=== PATIENT | female | born 1970 | race Caucasian/White ===

== ENCOUNTER 2019-07-06 06:34 | Inpatient (IN) ==
--- NOTE | 2019-07-03 09:24 | EKG Report ---
Test Performed on : 07/03/2019 09:20:37 AM Test Reason : PAT Blood Pressure : / mmHG Vent. Rate : 084 BPM Atrial Rate : 084 BPM P-R Int : 178 ms QRS Dur : 086 ms QT Int : 378 ms P-R-T Axes : 023 028 045 degrees QTc Int : 446 ms Normal sinus rhythm. Nonspecific T wave abnormality Abnormal ECG When compared with ECG of 05-OCT-2018 06:36, No significant change was found Confirmed by Jer Clark MD ([id number]) on 07/08/2019 9:27:59 PM
--- NOTE | 2019-07-03 09:43 | Diag Imaging Result Doc PS360 ---
EXAM: CHEST-2 VIEWS 07/03/2019 HISTORY: PAT TECHNIQUE: PA and lateral chest COMMENT: The inspiration is somewhat suboptimal. There is some questionable bibasilar atelectasis. The appearance the chest has not changed significantly since 09/28/2018. IMPRESSION: Stable chest. Electronically signed by Ezequiel Johnson 07/03/2019 9:40 AM
[2019-07-03 09:45] LABS: HEMATOCRIT 45.7 % (37.0-47.0); HEMOGLOBIN 15.2 g/dL (12.0-16.0); MCH 32.5 PG (27-31); MCHC 33.3 g/dL (33-37); MCV 97.9 FL (81-99); MPV 9.7 FL (7.4-10.4); RBC 4.67 XMIL (4.2-5.4); RDW 14.3 % (11.5-14.5); WBC 12.48 X1000 (4.8-10.8)
[2019-07-03 10:02] LABS: AGAP 11; BUN 8 mg/dL (8-22); CALCIUM 8.3 mg/dL (8.8-10.2); CHLORIDE 105 mmol/L (98-107); COSMO 281; CREATININE 0.9 mg/dL (0.5-0.9); ESTIMATED GFR > 60; GLUCOSE 185 mg/dL (70-104); POTASSIUM 3.8 mmol/L (3.5-5.1); SODIUM 139 mmol/L (136-145); TCO2 23 mmol/L (25-35)
[2019-07-06] MEDS ORDERED: LR 1,000 ML ONE ×2 (08:24→12:58)
[2019-07-06] MEDS ORDERED: KEFZOL 1 GM/D5W 2 GM/100 ML IVPB ONE (08:25)
--- NOTE | 2019-07-06 08:37 | Diag Imaging Result Doc PS360 ---
EXAM: LYMPHOSCINTIGRAPHY W/IMG HISTORY: SIRIA BREAST CA TECHNIQUE: Imaging following lymphoscintigraphy Findings: 455 uCi Tilmanocept administered in the left breast. 508 uCi Tilmanocept administered in the right breast. There is increased activity in the upper outer right breast/axilla. There is no intense focal area and possibly two tiny adjacent less intense areas. There is generalized increased activity above, below, and lateral to the injection site in the left breast, but no distinct focal abnormal area. IMPRESSION: There is definitely one, and possibly three, areas in the upper outer right breast/axilla. Generalized increased activity about the left injection site. Electronically signed by Jeffrey Birmingham 07/06/2019 8:34 AM
[2019-07-06] MEDS ORDERED: VALIUM ONE (09:05)
[2019-07-06] MEDS ORDERED: PEPCID ONE (09:26)
[2019-07-06] MEDS ORDERED: TRANSDERM-SCOP ONE (09:26)
[2019-07-06] MEDS ORDERED: DIPRIVAN 1% ONE (09:31)
[2019-07-06] MEDS ORDERED: QUELICIN (DOSE) ONE (09:32)
[2019-07-06] MEDS ORDERED: ZEMURON ONE (09:32)
[2019-07-06] MEDS ORDERED: VERSED ONE (09:34)
[2019-07-06] MEDS ORDERED: ZOFRAN ONE (09:39)
[2019-07-06] MEDS ORDERED: XYLOCAINE-MPF 2% ONE (09:39)
[2019-07-06] MEDS ORDERED: ROBINUL ONE (09:39)
[2019-07-06] MEDS ORDERED: DECADRON ONE (09:39)
[2019-07-06] MEDS ORDERED: METHYLENE BLUE 0.5% ONE (10:10)
[2019-07-06] MEDS ORDERED: SENSORCAINE 0.25%/EPI 1:200,000 ONE (10:11)
[2019-07-06] MEDS ORDERED: LTA KIT ONE (10:21)
[2019-07-06] MEDS ORDERED: FENTANYL ONE ×2 (10:23→11:34)
[2019-07-06] MEDS ORDERED: PRECEDEX ONE (11:06)
[2019-07-06] MEDS ORDERED: SODIUM CHLORIDE 0.9% 20 ML ONE (11:13)
[2019-07-06] MEDS ORDERED: DILAUDID ONE (12:12)
[2019-07-06] MEDS ORDERED: BUPRENEX IV PRN (13:50)
[2019-07-06] MEDS ORDERED: ZOFRAN IV PRN (13:50)
--- NOTE | 2019-07-06 14:42 | OPERATIVE NOTE ---
PROCEDURE DATE: 07/06/2019 PROCEDURE PERFORMED: 1. Right breast blue dye injection. 2. Right sentinel lymph node biopsy x2. 3. Right total mastectomy. 4. Left modified radical mastectomy. SURGEON: Michael Roberson MD. ROAD CREW MEMBER: Khalif Resendez RN. PREOPERATIVE DIAGNOSIS: Bilateral breast cancer. POSTOP DIAGNOSIS: Bilateral breast cancer. DESCRIPTION OF PROCEDURE: Satisfactory general endotracheal anesthesia was achieved. The right periareolar area was injected 5 mL of methylene blue and the breast was massaged for 5 minutes. Then both breasts and axillae and left arm were prepped and draped in a sterile fashion. We marked the skin in an elliptical fashion on both breasts. We first incised the skin in the right axilla and entered the axillary fat. We interrogated the axilla. We also followed the blue lymphatics toward the apex of the axilla where we identified 2 nodes that had activity and these were sent for frozen section. Some additional tommy tissue was removed but did not have activity so we simply sent additionally as lymph node tissue for permanent section. While we awaited the sentinel node frozen section, we went ahead and incised the skin in an elliptical fashion, placed our skin hooks superiorly, developed a superior skin flap up to the clavicle. We then did it inferiorly down to the serratus muscle and rectus muscles. We then began dissection of the breast off the pectoralis major muscle. We dissected from medial to lateral until we reached the lateral aspect of the pectoralis major. We then found out the 2 sentinel lymph nodes that we had sent were benign so we simply amputated the breast and did not dissect the axilla any further. We placed 1 drain into the axilla, 1 drain under the superior flap and secured these at the skin with 2-0 silk. We then closed the skin with marlon. We then air-planed the patient more to the right and made an elliptical dedra on the left breast. This breast had a larger cancer in it and we decided to dissect the axilla with the mastectomy. We then incised the skin in an elliptical fashion, developed our superior flaps near the clavicle, inferiorly down the serratus and rectus. We then reflected the breast medially, dissected down to the edge of the latissimus, followed the latissimus up to its tendinous portion. We then dissected anteriorly until we identified the axillary vein and dissected from lateral to medial. We dissected the tissue from lateral to medial along the course of the axillary vein. The branches of the vein going inferiorly were clamped and divided and ligated with 3-0 silks. The thoracodorsal nerve was identified and protected. The long thoracic nerve was identified and protected. We clamped the tissue between these and divided it ligating the stump with a 2-0 silk. We then dissected the tissue from between the 2 nerves until the nerves were seen to dive into the respective muscles. The artery to the latissimus was preserved. We then took the breast off the chest wall. We marked the apex of the axilla with the stitch. We achieved satisfactory hemostasis with electrocautery. We placed 2 drains in the left side as well, 1 underneath the skin flap superiorly, 1 in the axilla. We secured the drains at the skin level with 2-0 silks as well. The skin was closed with marlon. Sterile dressings were applied on both sides. She tolerated it well, was sent to the recovery room in satisfactory condition. cc: Michael Roberson MD
[2019-07-06] MEDS: LR 1,000 ML IV SCH ×2 (15:26→23:25)
--- NOTE | 2019-07-06 19:53 | GENERAL SURGERY PROGRESS NOTE ---
DATE: 07/06/2019 Ms. Flannery is doing well after bilateral mastectomy. Her drains are functional. Her hemodynamics are good. She seems comfortable. We will check her labs tomorrow. cc: Michael Roberson MD
[2019-07-06] MEDS: MIRAPEX PO SCH (22:08)
[2019-07-06] MEDS: NORCO-10 PO PRN (22:08)
[2019-07-06] MEDS: LITHIUM CARBONATE PO SCH (22:08)
[2019-07-06] MEDS: SEROQUEL PO SCH (22:18)
[2019-07-06] MEDS: KEFZOL 1 GM/D5W 1 GM/50 ML IVPB IV SCH (23:27)
[2019-07-07] MEDS: NORCO-10 PO PRN ×4 (03:56→23:06)
[2019-07-07] MEDS: SYNTHROID PO SCH (06:16)
[2019-07-07 06:21] LABS: BASO# 0.07 X1000 (0.0-0.2); BASO% 0.4 % (0.0-0.8); EOS# 0.57 X1000 (0.0-0.7); EOS% 3.4 % (0.0-10.0); HEMATOCRIT 39.9 % (37.0-47.0); HEMOGLOBIN 13.5 g/dL (12.0-16.0); IMM GRAN% 1.8 % (0.0-0.5); LYMPH# 3.48 X1000 (1.2-3.4); LYMPH% 20.9 % (20.5-51.1); MCH 33.2 PG (27-31); MCHC 33.8 g/dL (33-37); MONO# 1.98 X1000 (0.11-0.59); MONO% 11.9 % (1.7-9.3); MPV 10.5 FL (7.4-10.4); NEUT# 10.22 X1000 (1.4-6.5); NEUT% 61.6 % (42.2-75.2); PLT 282 X1000 (130-400); RBC 4.07 XMIL (4.2-5.4); RDW 14.4 % (11.5-14.5); WBC 16.62 X1000 (4.8-10.8)
[2019-07-07 07:20] LABS: AGAP 19; BUN 11 mg/dL (8-22); CALCIUM 8.4 mg/dL (8.8-10.2); CHLORIDE 100 mmol/L (98-107); COSMO 276; CREATININE 0.7 mg/dL (0.5-0.9); ESTIMATED GFR > 60; GLUCOSE 145 mg/dL (70-104); SODIUM 137 mmol/L (136-145); TCO2 18 mmol/L (25-35)
[2019-07-07] MEDS: TRADJENTA PO SCH (08:24)
[2019-07-07] MEDS: NON-FORMULARY MED PO SCH (08:24)
[2019-07-07] MEDS: MIRAPEX PO SCH ×2 (08:24→23:06)
[2019-07-07] MEDS: KEFZOL 1 GM/D5W 1 GM/50 ML IVPB IV SCH (08:24)
[2019-07-07] MEDS: GLUCOPHAGE XR PO SCH (08:24)
[2019-07-07] MEDS ORDERED: LINAGLIPTIN PO SCH (09:00)
[2019-07-07] MEDS ORDERED: EMPAGLIFLOZIN PO SCH (09:00)
[2019-07-07] MEDS: LR 1,000 ML IV SCH (09:41)
[2019-07-07] MEDS ORDERED: LR 1,000 ML IV SCH (10:44)
[2019-07-07] MEDS: PARNATE PO SCH ×3 (12:54→17:48)
--- NOTE | 2019-07-07 15:19 | GENERAL SURGERY PROGRESS NOTE ---
DATE: 07/07/2019 She is afebrile. Heart rate 100, blood pressure 102/56. Her drains are functioning. White count is 16,000. PLAN: The plan will be to keep her and continue to watch her drain output. Monitor wound care. We will recheck her white count tomorrow. cc: Micahel Roberson MD
[2019-07-07] MEDS: SEROQUEL PO SCH (23:05)
[2019-07-07] MEDS: LITHIUM CARBONATE PO SCH (23:06)
[2019-07-08 06:58] LABS: AGAP 14; BUN 10 mg/dL (8-22); CALCIUM 8.7 mg/dL (8.8-10.2); CHLORIDE 106 mmol/L (98-107); COSMO 283; CREATININE 0.8 mg/dL (0.5-0.9); ESTIMATED GFR > 60; GLUCOSE 119 mg/dL (70-104); POTASSIUM 3.6 mmol/L (3.5-5.1); SODIUM 142 mmol/L (136-145); TCO2 22 mmol/L (25-35)
[2019-07-08 07:01] LABS: BASO# 0.03 X1000 (0.0-0.2); BASO% 0.2 % (0.0-0.8); EOS# 0.74 X1000 (0.0-0.7); HEMATOCRIT 37.8 % (37.0-47.0); HEMOGLOBIN 12.3 g/dL (12.0-16.0); LYMPH# 2.83 X1000 (1.2-3.4); MCH 32.8 PG (27-31); MCHC 32.5 g/dL (33-37); MCV 100.8 FL (81-99); MONO# 1.57 X1000 (0.11-0.59); MONO% 12.8 % (1.7-9.3); MPV 11.4 FL (7.4-10.4); NEUT# 7.13 X1000 (1.4-6.5); PLT 182 X1000 (130-400); RBC 3.75 XMIL (4.2-5.4); RDW 14.7 % (11.5-14.5)
[2019-07-08] MEDS: NON-FORMULARY MED PO SCH (08:16)
[2019-07-08] MEDS: SYNTHROID PO SCH (08:16)
[2019-07-08] MEDS: TRADJENTA PO SCH (08:16)
[2019-07-08] MEDS: GLUCOPHAGE XR PO SCH (08:16)
[2019-07-08] MEDS: PARNATE PO SCH ×3 (08:16→20:40)
[2019-07-08] MEDS: MIRAPEX PO SCH ×2 (08:16→20:39)
[2019-07-08] MEDS ORDERED: SALINE LOCK IV FLUID XX ONE (10:15)
--- NOTE | 2019-07-08 10:40 | GENERAL SURGERY PROGRESS NOTE ---
DATE: 07/08/2019 She is afebrile. Hemodynamics were fine. She is producing quite a bit of fluid from her left axilla, less so from the right. Her bandages are dry. The plan will be to keep her today. We will look at her wounds tomorrow, re-bandage her wounds, and discharge her tomorrow. I think we will have to have home health go check on her at home because of her drain status. Her pathology is pending. cc: Michael Roberson MD
[2019-07-08] MEDS: NORCO-10 PO PRN (13:44)
[2019-07-08] MEDS: SEROQUEL PO SCH (20:39)
[2019-07-08] MEDS: LITHIUM CARBONATE PO SCH (20:40)
[2019-07-09] MEDS: SYNTHROID PO SCH (06:11)
[2019-07-09] MEDS: NORCO-10 PO PRN ×2 (06:11→10:10)
[2019-07-09] MEDS: PARNATE PO SCH (09:01)
[2019-07-09] MEDS: MIRAPEX PO SCH (09:01)
[2019-07-09] MEDS: GLUCOPHAGE XR PO SCH (09:01)
[2019-07-09] MEDS: TRADJENTA PO SCH (09:02)
[2019-07-09] MEDS: NON-FORMULARY MED PO SCH (09:02)
[2019-07-09 12:06] VITALS: BP 143/62
--- NOTE | 2019-07-09 18:13 | GENERAL SURGERY PROGRESS NOTE ---
DATE: 07/09/2019 SUBJECTIVE: She is postop day #3 after bilateral mastectomy and a left axillary dissection. Her wounds look good. She continues to drain. Her largest output is her left axilla, as expected. Her right medial drain is the least and will remove it. PLAN: Her bandage was changed. We discussed wound care and activities. She will return to see me in the office in a week. cc: Michael Roberson MD
--- NOTE | 2019-07-17 16:49 | DISCHARGE SUMMARY ---
ADMISSION DATE: 07/06/2019 DISCHARGE DATE: 07/09/2019 Ms. Flannery was admitted for bilateral mastectomy due to bilateral breast cancer. DISCHARGE DIAGNOSES: 1. T3 N3 MX of the left breast. 2. T2 N1 MX of the right breast. PRIMARY PROCEDURES: Right sentinel node biopsy, right mastectomy, and a left modified radical mastectomy. HOSPITAL COURSE: This is a 48-year-old lady with bilateral breast cancer proven by core needle biopsy in the office. The left breast cancer is larger than the right side. She was admitted and underwent the right sentinel lymph node biopsy and right mastectomy. On frozen section, she had 2 nodes were negative, so we did not dissect her complete right axilla. We did do a left modified radical mastectomy on the left. She was left with 2 medial drains, 2 lateral drains. We were able to maintain pain relief adequately. In the hospital, she did generally well. By 07/09, it was felt she could be discharged home. She understood how to empty her drains. We were able to remove her right medial drain. We left the other with [address]. She was discharged home with [place] [facility] for pain relief. She will resume her other usual medications. She will return to see me in the office in followup within a week. cc: Michael Roberson MD
== END 2019-07-09 14:28 | disposition home health service (06) | DRG 580 ==
LOC: SURHOLD 06:34 → 4N 14:30
PROVIDERS: ADMIT Surgery; ATTEND Surgery